=== PATIENT | male | born 1980 | race Caucasian/White ===

== ENCOUNTER 2020-04-25 16:49 | Emergency (ER) | payer SELFPAY ==
[2020-04-25 16:55] VITALS: BP 127/85; PULSE 91; RESP 16; TEMP 37; O2SAT 97
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
[2020-04-25] MEDS: Ibuprofen 800 MG TAB PO (17:08)
--- NOTE | 2020-04-25 17:13 | NUR.NOTE ---
no head lac noted
[2020-04-25] MEDS: HYDROcodone 5/Acetaminophen 325 TAB PO (17:30)
--- NOTE | 2020-04-25 17:30 | DI.RAD_ITS ---
EXAM: XR CLAVICLE LT INDICATION: Pain, deformity. COMPARISON: No exams were available for comparison TECHNIQUE: 2D digital imaging was performed. FINDINGS: There is a comminuted fracture of the distal 3rd of the clavicle. There is some separation of fractu re fragments. AC joint shows mild degenerative changes. The glenohumeral joint appears intact as vi sualized. The visualized portions of the ribs appear intact. IMPRESSION: Comminuted distal clavicular fracture. DATA REPOSITORY: RADIATION DOSE DELIVERED:
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
[2020-04-25 18:00] VITALS: BP 115/86; PULSE 87; RESP 18; O2SAT 96
--- NOTE | 2020-04-25 18:01 | NUR.NOTE ---
large sling applied to L upper extremity
== END 2020-04-25 17:55 | disposition home or self-care (01) ==
PROVIDERS: Emergency Provider Emergency Medicine
DX: S42.002A Fracture of unspecified part of left clavicle, initial encounter for closed fracture (principal); V00.138A Other skateboard accident, initial encounter
CPT/HCPCS: 99284; 73000; L3650